=== PATIENT | female | born 1955 | race Caucasian/White ===

== ENCOUNTER 2022-06-30 12:31 | Emergency (ER) | payer OTHER ==
[~2022-06-30] VITALS: Ht 170.2 cm; Wt 113.0 kg
[~2022-06-30 12:31] MED LIST: EZET10TA22; FLUO20CA19; IBUP800T41; LISI-709; OME20GT; PREG25CA; TRAM-411; VALS40TA2
[2022-06-30 14:34] VITALS: BP 183/71
[2022-06-30] MEDS ORDERED: CLIN300C8 PO (15:02)
== END 2022-06-30 15:53 | disposition home or self-care (01) ==
LOC: ER 12:31
DX: S61.250A Open bite of right index finger without damage to nail, initial encounter (principal); L08.9 Local infection of the skin and subcutaneous tissue, unspecified; I10 Essential (primary) hypertension; E78.5 Hyperlipidemia, unspecified; Z79.2 Long term (current) use of antibiotics; Z79.899 Other long term (current) drug therapy; Z88.0 Allergy status to penicillin; Z88.2 Allergy status to sulfonamides; W55.01XA Bitten by cat, initial encounter; Y93.89 Activity, other specified; Y92.89 Other specified places as the place of occurrence of the external cause; Y99.8 Other external cause status
CPT/HCPCS: 73140

== ENCOUNTER 2022-07-02 19:03 | Emergency (ER) | payer OTHER ==
[~2022-07-02] VITALS: Ht 170.2 cm; Wt 113.0 kg
[~2022-07-02 19:03] MED LIST changes: +CLIN300C8 PO
[2022-07-02] MEDS ORDERED: LEVO-28 PO (20:00)
[2022-07-02] MEDS ORDERED: cloNIDine HCL 0.1 MG TAB PO ONE (20:00)
[2022-07-02] MEDS ORDERED: CLINDAMYCIN 600 MG/4 ML VL IM ONE (20:15)
[2022-07-02] MEDS ORDERED: levoFLOXacin 250 MG TAB PO ONE (20:15)
[2022-07-02 20:30] LABS: Basophils # (auto) 0 10 ^3/uL (0-0.2); Basophils % (auto) 0.7 % (0.0-2.0); Eosinophils # (auto) 0.2 10 ^3/uL (0-0.8); Eosinophils % (auto) 2.4 % (0.0-7.0); Hematocrit 38.2 % (36.0-46.0); Hemoglobin 12.8 g/dL (12.2-16.2); Lymphocytes # (auto) 1.5 10 ^3/uL (0.4-5.4); Lymphocytes % (auto) 23.2 % (10.0-50.0); Mean Corpuscular Hemoglobin 28.8 pg (28.0-32.0); Mean Corpuscular Hgb Conc. 33.6 g/dL (32.0-36.0); Mean Corpuscular Volume 85.8 fL (80.0-100.0); Monocytes # (auto) 0.6 10 ^3/uL (0-1.3); Monocytes % (auto) 8.6 % (0.0-12.0); Neutrophils # (auto) 4.3 10 ^3/uL (1.6-8.6); Neutrophils % (auto) 65.1 % (37.0-80.0); Nucleated Red Blood Cells % 0.1 %; Red Blood Cells 4.45 10^6/uL (4.0-5.20); Red Cell Distribution Width 12.5 % (11.8-14.3); White Blood Cell 6.7 10^3/uL (4.4-10.8)
[2022-07-02 20:52] LABS: Albumin 3.8 g/dL (3.4-5.0); BUN/Creatinine Ratio 26.4; Calcium 9.2 mg/dL (8.5-10.1); Potassium 3.7 mmol/L (3.5-5.1)
[2022-07-02 20:58] LABS: CRP High Sensitivity 0.091 mg/dL (< 0.3)
[2022-07-02 21:00] LABS: Bilirubin, Total 0.3 mg/dL (0.2-1.0)
[2022-07-02 21:01] LABS: Total Protein 7.6 g/dL (6.4-8.2)
[2022-07-02 21:18] VITALS: BP 183/76
== END 2022-07-02 21:36 | disposition home or self-care (01) ==
LOC: ER 19:03
DX: S61.250D Open bite of right index finger without damage to nail, subsequent encounter (principal); L03.011 Cellulitis of right finger; I10 Essential (primary) hypertension; E78.5 Hyperlipidemia, unspecified; Z79.2 Long term (current) use of antibiotics; Z79.899 Other long term (current) drug therapy; Z88.0 Allergy status to penicillin; Z88.2 Allergy status to sulfonamides; W55.01XD Bitten by cat, subsequent encounter
CPT/HCPCS: 36415; 80053; 85025; 86141; 96372